=== PATIENT | female | born 1940 | race Hispanic/Latino ===

== ENCOUNTER → 2017-04-04 | Outpatient (CLI) | payer OTHER | LOC: RAH 14:54 | PROVIDERS: ATTEND Family Medicine | DX: Z12.31 Encounter for screening mammogram for malignant neoplasm of breast (principal) | CPT/HCPCS: 77067 ==

== ENCOUNTER → 2018-07-15 | Outpatient (CLI) | payer OTHER | END | disposition home or self-care (01) | LOC: RAH 13:36 | PROVIDERS: ATTEND Family Medicine | DX: Z12.31 Encounter for screening mammogram for malignant neoplasm of breast (principal) | CPT/HCPCS: 77067 ==

== ENCOUNTER 2021-07-22 22:17 | Observation (INO) | payer OTHER ==
[~2021-07-22] VITALS: Ht 152.4 cm; Wt 49.9 kg
[~2021-07-22 22:17] MED LIST: ALEN70TA80 PO; APIX2.5T PO; ATOR40TA69 PO; CYCL30DR OP; METF-910 PO
[2021-07-23] VITALS (25 sets, daily range): BP systolic 116–175; BP diastolic 46–76
[2021-07-23] MEDS ORDERED: ONDANSETRON 4MG INJ IVP STA (00:06)
[2021-07-23] MEDS ORDERED: MORPHINE 4 MG SYG IVP STA (00:06)
[2021-07-23] MEDS ORDERED: ONDANSETRON 4MG INJ IVP PRN ×2 (00:30→04:30)
[2021-07-23] MEDS ORDERED: ZOSYN 3.375GM +NS 50ML IV SCH (00:30)
[2021-07-23] MEDS ORDERED: HYDROMORPHONE 0.5 MG SYG (0.5MG/0.5ML) IVP PRN (00:30)
[2021-07-23] MEDS ORDERED: INSULIN HUMULIN R 100 UNIT/ML 3ML SQ PRN (00:30)
[2021-07-23 00:48] LABS: BASOPHILS % (AUTO) 0.3 % (0.0-5.0); EOSINOPHILS % (AUTO) 0.1 % (0.0-8.0); HEMATOCRIT 32.7 % (36-48); LYMPHOCYTES % (AUTO) 13.3 % (21.0-51.0); MEAN CORPUSCULAR HEMOGLOBIN 28.2 pg (27.0-33.0); MEAN CORPUSCULAR HGB CONC 31.5 g/dL (32.0-36.0); MEAN CORPUSCULAR VOLUME 89.6 fL (79-99); MONOCYTES % (AUTO) 5.7 % (3.0-13.0); NEUTROPHILS % (AUTO) 79.9 % (40.0-77.0); PLATELET COUNT (AUTO) 236 K/uL (130-400); RED BLOOD CELL COUNT(AUTO) 3.65 MIL/uL (4.00-5.50); RED CELL DISTRIBUTION WIDTH 15.2 % (11.0-15.5); WHITE BLOOD COUNT (AUTO) 16.6 K/uL (4.8-10.8)
[2021-07-23 01:13] LABS: CREATININE 0.8 mg/dL (0.5-1.5); POTASSIUM 3.8 mmol/L (3.5-5.1)
[2021-07-23 01:18] LABS: ALBUMIN 3.8 g/dL (3.5-5.0); BILIRUBIN,TOTAL 0.6 mg/dL (0.2-1.0); TOTAL PROTEIN, SERUM 7.9 g/dL (6.0-8.3)
[2021-07-23] MEDS ORDERED: HYDRALAZINE 20MG/ML VIAL IV PRN (04:30)
[2021-07-23] MEDS ORDERED: ACETAMINOPHEN 325 MG TAB PO PRN (04:30)
[2021-07-23] MEDS ORDERED: LABETALOL 20MG SYG IV PRN (04:30)
[2021-07-23] MEDS ORDERED: LACTULOSE 20 GM/30 ML UDCUP PO PRN (04:30)
[2021-07-23] MEDS ORDERED: ACETAMINOPHEN 650 MG SUPPOSITORY RC PRN (04:30)
[2021-07-23] MEDS ORDERED: TEMAZEPAM 15 MG CAPSULE PO PRN (04:30)
[2021-07-23] MEDS ORDERED: CLONIDINE HCL 0.1 MG TABLET PO PRN (04:30)
[2021-07-23] MEDS ORDERED: DOCUSATE SODIUM 100 MG CAP PO PRN (04:30)
[2021-07-23] MEDS ORDERED: MORPHINE 4 MG SYG IVP PRN (04:30)
[2021-07-23] MEDS ORDERED: LOSA100T58 PO (04:53)
[2021-07-23] MEDS ORDERED: POTASSIUM CHLORIDE 20MEQ/100ML 100 ML IV PRN (06:00)
[2021-07-23] MEDS ORDERED: DEXTROSE 50%-WATER 50 ML DISP.SYRIN IV PRN (06:00)
[2021-07-23] MEDS ORDERED: POTASSIUM CHLORIDE 10% ELIXIR 20 MEQ/15 ML UDCUP PO PRN (06:00)
[2021-07-23] MEDS ORDERED: MAGNESIUM 2GM PREMIX 50ML 50 ML IV PRN (06:00)
[2021-07-23] MEDS ORDERED: KCL 20 MEQ ERTAB PO PRN (06:00)
[2021-07-23] MEDS ORDERED: GLUCAGON 1MG KIT 1 MG ML IM PRN (06:00)
[2021-07-23] MEDS: INSULIN HUMULIN R 100 UNIT/ML 3ML SQ SCH ×4 (06:51→21:00)
[2021-07-23] MEDS: LACTATED RINGERS 1000ML 1,000 ML IV SCH ×2 (06:57→19:20)
[2021-07-23] MEDS: LOSARTAN 100 MG TABLET PO SCH (09:38)
[2021-07-23] MEDS: PANTOPRAZOLE 40 MG/VIAL IVP SCH ×2 (09:38→20:27)
[2021-07-23] MEDS ORDERED: ACETAMINOPHEN WITH CODEINE 1 TAB TAB PO PRN (17:30)
[2021-07-23] MEDS ORDERED: PROPOFOL 10 MG/ML 20ML VIAL IV ONE (18:46)
[2021-07-23] MEDS ORDERED: KETAMINE 50MG/ML SYRINGE 50 MG/ML DISP.SYRIN IV ONE (18:48)
[2021-07-23] MEDS ORDERED: ATORVASTATIN 40 MG TABLET PO SCH (21:00)
[2021-07-24] VITALS (8 sets, daily range): BP systolic 121–146; BP diastolic 53–70
[2021-07-24 05:13] LABS: BASOPHILS % (AUTO) 0.2 % (0.0-5.0); EOSINOPHILS % (AUTO) 0.3 % (0.0-8.0); HEMATOCRIT 29.3 % (36-48); LYMPHOCYTES % (AUTO) 18.6 % (21.0-51.0); MEAN CORPUSCULAR HEMOGLOBIN 28.8 pg (27.0-33.0); MEAN CORPUSCULAR HGB CONC 32.4 g/dL (32.0-36.0); MEAN CORPUSCULAR VOLUME 88.8 fL (79-99); MONOCYTES % (AUTO) 10.5 % (3.0-13.0); NEUTROPHILS % (AUTO) 69.9 % (40.0-77.0); PLATELET COUNT (AUTO) 184 K/uL (130-400); RED CELL DISTRIBUTION WIDTH 15.1 % (11.0-15.5); WHITE BLOOD COUNT (AUTO) 12.4 K/uL (4.8-10.8)
[2021-07-24 05:40] LABS: CREATININE 0.6 mg/dL (0.5-1.5); MAGNESIUM 1.9 mg/dL (1.80-2.40); PHOSPHORUS 3.1 mg/dL (2.5-4.9); POTASSIUM 3.7 mmol/L (3.5-5.1)
[2021-07-24] MEDS: INSULIN HUMULIN R 100 UNIT/ML 3ML SQ SCH ×3 (05:53→16:30)
[2021-07-24] MEDS: PANTOPRAZOLE 40 MG/VIAL IVP SCH (09:00)
[2021-07-24] MEDS ORDERED: ENOXAPARIN SODIUM 40 MG/0.4 ML SYRINGE SQ SCH (09:00)
[2021-07-24] MEDS: LOSARTAN 100 MG TABLET PO SCH (10:00)
[2021-07-24 17:30] LABS: APPEARANCE,URINE Clear (CLEAR); BILIRUBIN,URINE Negative (NEGATIVE); COLOR,URINE Yellow (YELLOW); GLUCOSE, URINE (UA) Negative (NEGATIVE); KETONES,URINE Trace mg/dL (NEGATIVE); LEUKOCYTE ESTERASE ,URINE Large (NEGATIVE); NITRATE,URINE Negative (NEGATIVE); OCCULT BLOOD,URINE Moderate (NEGATIVE); PROTEIN,URINE Trace mg/dL (NEGATIVE)
[2021-07-24 18:11] LABS: BACTERIA,URINE Few /HPF (None Seen)
[2021-07-24 18:12] LABS: SQUAMOUS EPITHELIAL CELL,UR Few /HPF (0-2)
[2021-07-24] MEDS ORDERED: LEVO500T90 PO (19:20)
== END 2021-07-24 20:54 | disposition home or self-care (01) ==
LOC: EDH 22:17 → UNDOADMIN 07-23 00:05 → EDHIP 07-23 00:05 → 3DH 07-23 04:25
PROVIDERS: ADMIT Internal Medicine Critical Care Medicine; ATTEND Internal Medicine Critical Care Medicine
DX: S42.351A Displaced comminuted fracture of shaft of humerus, right arm, initial encounter for closed fracture (principal); Z20.822 Contact with and (suspected) exposure to COVID-19; S43.004A Unspecified dislocation of right shoulder joint, initial encounter; S72.001A Fracture of unspecified part of neck of right femur, initial encounter for closed fracture; I10 Essential (primary) hypertension; E11.9 Type 2 diabetes mellitus without complications; E78.5 Hyperlipidemia, unspecified; N39.0 Urinary tract infection, site not specified; E78.00 Pure hypercholesterolemia, unspecified; Z79.01 Long term (current) use of anticoagulants; Z79.899 Other long term (current) drug therapy; W01.0XXA Fall on same level from slipping, tripping and stumbling without subsequent striking against object, initial encounter; Y92.89 Other specified places as the place of occurrence of the external cause; Y93.89 Activity, other specified; Y99.8 Other external cause status
CPT/HCPCS: 24505; 36415 ×2; 71045; 73030 ×2; 73100; 80048; 80053; 81001; 82948 ×7; 83735; 84100; 84484; 85025 ×2; 86850; 86900; 86901; 87077; 87088; 87186; 87635; 93005; 96372; 96374; 96375; 96376; 97116; 97161; 99284; A4606; C9113 ×2; G0378 ×41; J1650; J2270; J2405; J2704; J3490; J7120

== ENCOUNTER → 2021-12-10 | Outpatient (CLI) | payer OTHER ==
[~2021-12-10] MED LIST changes: -ALEN70TA80 PO; -APIX2.5T PO; -CYCL30DR OP; +LEVO-70 PO; +LOSA100T58 PO
== END | disposition home or self-care (01) ==
LOC: RAH 14:08
PROVIDERS: ATTEND Family Medicine
DX: Z12.31 Encounter for screening mammogram for malignant neoplasm of breast (principal)
CPT/HCPCS: 77067

== ENCOUNTER → 2023-04-18 | Outpatient (CLI) | payer OTHER ==
[~2023-04-18] MED LIST changes: -LOSA100T58 PO; +LOSA100T59 PO
== END | disposition home or self-care (01) ==
LOC: RAH 14:30
PROVIDERS: ATTEND Family Medicine
DX: Z12.31 Encounter for screening mammogram for malignant neoplasm of breast (principal)
CPT/HCPCS: 77067

== ENCOUNTER 2024-06-06 09:17 | Observation (INO) | payer OTHER ==
[~2024-06-06] VITALS: Ht 160 cm; Wt 44.9 kg
--- NOTE | 2024-06-06 09:37 | ERN ---
General Chief Complaint: Hip Pain/Injury Stated Complaint: RT HIP PAIN POST FALL X3 DAYS AGO Time Seen by MD: 09:23 History of Present Illness Initial Comments 84-year-old female, history of hypertension, dyslipidemia, previous right hip surgery, presents for right hip pain. Three days ago she had a mechanical type fall onto the right hip. She was no other injuries. She did not hit her head. She reports that since then she has had pain to the right hip and she was not been able to ambulate without assistance. She does not appear to be able to bear weight. She was neurovascularly intact in the leg. He was decreased range of motion of the hip due to pain. No urinary symptoms. No fevers or systemic illness. She reports that the pain is in significant and since she can not walk she is unable to perform ADLs at home. Allergies: Coded Allergies: No Known Allergies (Unverified Allergy, Unknown, 02/07/19) Home Meds Reported Medications Alendronate Sodium (Alendronate Sodium) 70 Mg Tablet, 1 TAB PO QWEEKACB for 28 Days, #4 TAB 0 Refills in the morning, at least 30 minutes before the first food, beverage, or medication of the day 06/06/24 Losartan Potassium (Losartan Potassium) 100 Mg Tablet, 100 MG PO DAILY, TAB 07/23/21 Atorvastatin Calcium (LIPITOR) 40 Mg Tablet, 40 MG PO HS, TAB 02/08/19 Metformin HCl (Metformin HCl ER) 500 Mg Tab.er.24h, 500 MG PO BIDAC, TAB 02/08/19 Discontinued Scripts Levofloxacin (Levofloxacin) 500 Mg Tablet, 500 MG PO DAILY for 7 Days, #7 TAB Prov:DEEPAK SPICER AUTOMATION OPERATOR 07/24/21 Past Medical History Past Medical History: Diabetes-Type II, High Cholesterol, Hypertension Past Surgical History: None Social History Social History: Negative ROS Dictation CONSTITUTIONAL: No chills, no fever, no weakness, no diaphoresis, no malaise. HEAD/FACE: No signs of trauma. EENT: No eye pain, no blurred vision, no tearing, no double vision, no ear pain, no ear discharge, no nose pain, no nasal congestion, no throat pain, no throat swelling, no mouth pain. RESPIRATORY: No cough, no orthopnea, no SOB, no stridor, no wheezing. CARDIOVASCULAR: No chest pain, no edema, no palpitations, no syncope. GASTROINTESTINAL/ABDOMINAL: No abdominal pain, no constipation, no diarrhea, no nausea, no vomiting. GENITOURINARY: No abnormal discharge, no dysuria, no frequent urination, no hematuria. No complaints of pain in the genitals. MUSCULOSKELETAL: Right hip pain INTEGUMENTARY: No change in color, no change in hair/nails, no dryness, no lesion, no lumps, no rash. NEUROLOGICAL/PSYCH: No anxiety, not depressed, no emotional problem, no headache, no numbness, no pre-existing deficit, no history of seizures, no tremors, no weakness. HEMATOLOGIC/LYMPHATIC: Not anemic, no history of blood clots, no apparent bleeding, no bruising, glands not swollen. All Systems Negative, Except as Noted. Physical Exam Physical Exam Dictation VITAL SIGNS: Reviewed. GENERAL APPEARANCE: Alert, oriented x3, no acute distress, thin HEAD AND FACE: Non-traumatic. EYES: PERRL, pink conjunctivas, eyelid no trauma, anterior chamber clear. EARS: Pinnas intact and no signs of trauma or erythema. Ear canals clear and no discharge. TMs no erythema. NOSE: No discharge, no bleeding. OROPHARYNX: Mouth normal, teeth no caries, tongue pink. Pharynx clear, no erythema. Tonsils no exudates, no abscesses noted. Mucous membrane moist. NECK: Supple, non-tender, no thyromegaly, no masses, no JVD, no bruits. BREAST: Deferred. CHEST: No tenderness, no crepitus, no paradoxical movement, no retractions. LUNGS: Clear, well-ventilated, symmetric, no rales, no wheezing, no rhonchi, no stridor, good breath sounds bilaterally. HEART: Regular rate, regular rhythm, no murmur, no gallops. VASCULAR: No peripheral edema. ABDOMEN: Soft, positive bowel sounds, nondistended, no guarding, nontender, no rebound, no masses no hepatomegaly, no splenomegaly, no Hill's sign, no hernias. RECTAL: Deferred. GENITAL: Deferred. NEUROLOGICAL: Normal speech, gross motor function intact, gross sensory function intact. MUSCULOSKELETAL: Neck nontender, full range of motion, back nontender, full range of motion. Right hip has decreased range of motion due to pain tenderness with the palpation of the hip. Pelvis appears intact. EXTREMITIES: Nontender, full range of motion. SKIN: Color pink, dry, no turgor, no rash, no lacerations, no abrasions, no contusions. LYMPHATICS: Deferred. Results Laboratory and Microbiology Lab and Micro Result Laboratory Tests Test 06/06/24 09:37 White Blood Count 13.3 K/uL (4.8-10.8) H Red Blood Count 3.32 MIL/uL (4.00-5.50) L Hemoglobin 9.7 g/dL (12.0-16.0) L Hematocrit 30.1 % (36-48) L Mean Corpuscular Volume 90.7 fL (79-99) Mean Corpuscular Hemoglobin 29.2 pg (27.0-33.0) Mean Corpuscular Hemoglobin Concent 32.2 g/dL (32.0-36.0) Red Cell Distribution Width 14.3 % (11.0-15.5) Platelet Count 192 K/uL (130-400) Mean Platelet Volume 9.5 fL (7.5-10.5) Immature Granulocyte % (Auto) 0.6 % (0-1) Neutrophils (%) (Auto) 79.4 % (40.0-77.0) H Lymphocytes (%) (Auto) 9.4 % (21.0-51.0) L Monocytes (%) (Auto) 9.6 % (3.0-13.0) Eosinophils (%) (Auto) 0.8 % (0.0-8.0) Basophils (%) (Auto) 0.2 % (0.0-5.0) Neutrophils # (Auto) 10.5 K/uL (1.8-7.7) H Lymphocytes # (Auto) 1.3 K/uL (1.0-4.8) Monocytes # (Auto) 1.3 K/uL (0.1-1.0) H Eosinophils # (Auto) 0.11 K/uL (0.00-0.70) Basophils # (Auto) 0.03 K/uL (0.00-0.20) Absolute Immature Granulocyte (auto 0.08 K/uL (0-1) Nucleated Red Blood Cells 0.0 % (0.0-0.19) White Cell Morphology Comment See comments Sodium Level 139 mmol/L (136-145) Potassium Level 3.4 mmol/L (3.5-5.1) L Chloride Level 105 mmol/L (101-111) Carbon Dioxide Level 28 mmol/L (21-32) Blood Urea Nitrogen 18 mg/dL (7-18) Creatinine 0.8 mg/dL (0.5-1.0) Glomerular Filtration Rate Calc 74 mL/min (>90) Random Glucose 112 mg/dL (70-105) H Total Calcium 8.2 mg/dL (8.5-10.1) L MDM CC: Right hip pain after a fall three days ago Historian: Patient Comorbidities: Advanced age, high cholesterol, dyslipidemia, diabetes, frailty Limitations by social determinants of health: None Differential diagnosis: Fracture or musculoskeletal injury, other Vital signs stable, remained stable in the ER. Labs (independently ordered and interpreted by me ): There is a leukocytosis 13.3 K, 79% neutrophils. No bands. She was also anemic hemoglobin 9.7, normocytic. Likely baseline for patient. Chemistry panel shows a mildly elevated BUN to creatinine ratio but is otherwise unremarkable. The hip x-ray shows no evidence of fracture. Right medullary nail and screws appear intact. Independently interpreted by me. Treatment in ER: 4 mg IV morphine, 15 mg IV Toradol Re-evaluation. Patient reports improvement of pain, but she was still not ambulatory due to the discomfort. She reports that she was unable to take care of her ADLs at home, we will admit for inability to walk. Consultation: Hospitalist for admission. Agrees with the plan for admission. ED Course Orders Procedure Category Date Status Time Cbc With Differential LAB 06/06/24 Complete 09:23 Basic Metabolic Panel LAB 06/06/24 Complete 09:23 Morphine 4mg Syg PHA 06/06/24 Complete (Morphine 4mg Syg) 09:30 Ketorolac PHA 06/06/24 Complete Tromethamine 15mg/Ml 09:30 Hip Unilat 2-3vw Right RAD 06/06/24 Resulted 09:23 Current Medications Medications (Trade) Dose Ordered Sig/Belkis Route PRN Reason Start Time Stop Time Status Last Admin Dose Admin Ketorolac Tromethamine (toRADol) 15 mg ONCE ONCE IV 06/06/24 09:30 06/06/24 09:32 DC 06/06/24 10:36 Morphine Sulfate (morPHINE 4MG SYG) 4 mg ONCE ONCE IVP 06/06/24 09:30 06/06/24 09:32 DC 06/06/24 10:38 Vital Signs Date Time Temp Pulse Resp B/P (MAP) Pulse Ox O2 Delivery O2 Flow Rate FiO2 06/06/24 10:45 98.2 75 14 133/47 100 Room Air* 0 21 06/06/24 09:19 97.9 75 20 129/63 100 Room Air 0 DX & DISP Disposition: Inpatient ([facility], [place]) Departure Impression: Primary Impression: Injury of right hip Additional Impressions: Inability to ambulate due to hip, Normocytic anemia Condition: Stable Referrals: GURINDER JOSUE MD (PCP) LEXI CARY DO Jun 06, 2024 09:37
[2024-06-06 09:42] LABS: BASOPHILS # (AUTO) 0.03 K/uL (0.00-0.20); BASOPHILS % (AUTO) 0.2 % (0.0-5.0); EOSINOPHILS # (AUTO) 0.11 K/uL (0.00-0.70); EOSINOPHILS % (AUTO) 0.8 % (0.0-8.0); HEMATOCRIT 30.1 % (36-48); IMMATURE GRANULOCYTE ABSOLUTE 0.08 K/uL (0-1); LYMPHOCYTES # (AUTO) 1.3 K/uL (1.0-4.8); LYMPHOCYTES % (AUTO) 9.4 % (21.0-51.0); MEAN CORPUSCULAR HEMOGLOBIN 29.2 pg (27.0-33.0); MEAN CORPUSCULAR HGB CONC 32.2 g/dL (32.0-36.0); MEAN CORPUSCULAR VOLUME 90.7 fL (79-99); MONOCYTES # (AUTO) 1.3 K/uL (0.1-1.0); MONOCYTES % (AUTO) 9.6 % (3.0-13.0); NEUTROPHILS # (AUTO) 10.5 K/uL (1.8-7.7); NEUTROPHILS % (AUTO) 79.4 % (40.0-77.0); PLATELET COUNT (AUTO) 192 K/uL (130-400); RED BLOOD CELL COUNT(AUTO) 3.32 MIL/uL (4.00-5.50); RED CELL DISTRIBUTION WIDTH 14.3 % (11.0-15.5); WHITE BLOOD COUNT (AUTO) 13.3 K/uL (4.8-10.8)
[2024-06-06 09:56] LABS: CREATININE 0.8 mg/dL (0.5-1.0); POTASSIUM 3.4 mmol/L (3.5-5.1)
--- NOTE | 2024-06-06 10:30 | NUR ---
PATIENT STATES SHE DOES NOT HAVE HOME MEDS WITH HER AT BEDSIDE
[2024-06-06] MEDS: ketOROlac 15MG/ML VIAL (15MG/ML) IV ONE (10:36)
[2024-06-06] MEDS: morPHINE 4 MG SYG IVP ONE (10:38)
--- NOTE | 2024-06-06 11:47 | HP ---
[facility] HISTORY & PHYSICAL Date Patient Seen: Jun 06, 2024 Time of Visit: 11:47 Supervising Physician: Dr. Nish Brock Primary Care Physician: Dr. Rafa Castillo Outpatient Specialists: [ ] Inpatient Consults: [ ] PROBLEM LIST: Mechanical fall at home Previous right hip nail fixation Hypertension Dyslipidemia HPI: Patient was an 84-year-old female with a past medical history significant for hypertension, previous right hip nail fixation, who presents to the ED today and was admitted for a mechanical fall she suffered three days ago in which she landed on her right hip, no fracture seen on radiological imaging. Patient reports no head involvement. Patient states that over the course of the last three days the pain has prevented her from completing her ADLs. Per family at bedside they would like for patient to receive physical therapy at home after her workup here in the hospitalist complete. At this time patient has a physical therapy evaluation pending, advised that SNF placement would likely be more prudent however family declines and states they would like her to be at home. Advised that we will continue with physical therapy evaluation at this time and once it was arranged case management will work towards physical therapy at home if possible, if not patient's family advised that they may have to seek physical therapy at home through the PCP. Plan No fractures on radiographs Pain management Physical therapy evaluation Case management for home PT referral options PAST MEDICAL HX: see above PAST SURGICAL HX: noncontributory SOCIAL HISTORY: No tobacco, ETOH, or illicit drug use Coded Allergies: No Known Allergies (Unverified Allergy, Unknown, 02/07/19) REVIEW OF SYSTEMS: 12 point ROS reviewed with patient. Pertinent positives mentioned above. Otherwise negative. PHYSICAL EXAM: GENERAL: alert, weak, awake oriented x 3 HEENT: EOMI, Sclera non icteric, moist mucosa NECK: Supple, no JVD, trachea midline LUNGS: Clear breath sounds bilaterally. No wheezes HEART: Regular rate and rhythm. Normal S1 and S2, without murmurs ABD: Abdomen soft, nontender. Bowel sounds present EXT: No clubbing cyanosis or edema NEURO: Alert and oriented to person, follows commands Vital Signs (last 8hr) Date Time Temp Pulse Resp B/P (MAP) Pulse Ox O2 Delivery O2 Flow Rate FiO2 06/06/24 10:45 98.2 75 14 133/47 100 Room Air* 0 21 06/06/24 09:19 97.9 75 20 129/63 100 Room Air 0 LABS: Hematology Labs: Test 06/06/24 09:37 Range/Units White Blood Count 13.3 H 4.8-10.8 K/uL Red Blood Count 3.32 L 4.00-5.50 MIL/uL Hemoglobin 9.7 L 12.0-16.0 g/dL Hematocrit 30.1 L 36-48 % Mean Corpuscular Volume 90.7 79-99 fL Mean Corpuscular Hemoglobin 29.2 27.0-33.0 pg Mean Corpuscular Hemoglobin Concent 32.2 32.0-36.0 g/dL Red Cell Distribution Width 14.3 11.0-15.5 % Platelet Count 192 130-400 K/uL Mean Platelet Volume 9.5 7.5-10.5 fL Immature Granulocyte % (Auto) 0.6 0-1 % Neutrophils (%) (Auto) 79.4 H 40.0-77.0 % Lymphocytes (%) (Auto) 9.4 L 21.0-51.0 % Monocytes (%) (Auto) 9.6 3.0-13.0 % Eosinophils (%) (Auto) 0.8 0.0-8.0 % Basophils (%) (Auto) 0.2 0.0-5.0 % Neutrophils # (Auto) 10.5 H 1.8-7.7 K/uL Lymphocytes # (Auto) 1.3 1.0-4.8 K/uL Monocytes # (Auto) 1.3 H 0.1-1.0 K/uL Eosinophils # (Auto) 0.11 0.00-0.70 K/uL Basophils # (Auto) 0.03 0.00-0.20 K/uL Absolute Immature Granulocyte (auto 0.08 0-1 K/uL Nucleated Red Blood Cells 0.0 0.0-0.19 % White Cell Morphology Comment See comments Chemistry Labs: Test 06/06/24 09:37 Range/Units Sodium Level 139 136-145 mmol/L Potassium Level 3.4 L 3.5-5.1 mmol/L Chloride Level 105 101-111 mmol/L Carbon Dioxide Level 28 21-32 mmol/L Blood Urea Nitrogen 18 7-18 mg/dL Creatinine 0.8 0.5-1.0 mg/dL Glomerular Filtration Rate Calc 74 >90 mL/min Random Glucose 112 H 70-105 mg/dL Total Calcium 8.2 L 8.5-10.1 mg/dL DIAGNOSTICS / RADIOLOGY RESULTS: [ ] PLAN NEURO: Minimize central acting medications as possible. Maintain fall precautions, adequate lighting during the day PULMONARY: Supplemental 02 as needed. Maintain aspiration precautions at all times CARDIOVASCULAR: Follow hemodynamics. Vital signs per facility protocol GI & NUTRITION: Continue with nutritional support. Continue stool softeners and laxatives as needed. KIDNEYS & ELECTROLYTES: Strict monitoring of intake, output and overall fluid balance. Avoid nephrotoxic medications to the extent possible. Medications to be dosed according to renal function. Monitor electrolytes and replace as needed ENDOCRINE: Maintain blood glucose between 100-180 at all times. Hypoglycemia protocol in place INFECTIOUS DISEASE: Trend temperature, WBC and procalcitonin level Follow cultures, deescalate antibiotics as soon as possible. Panculture if new onset fever ONCOLOGY/HEMATOLOGY/COAGULATION: Monitor for s/s of bleeding Monitor hemoglobin, coagulation studies as needed SKIN: Pressure ulcer prevention per facility protocol Specialty mattress ORTHO/REHAB: Continue PT/OT Prophylaxis: Continue GI and DVT prophylaxis Code Status: Full Resuscitation Disposition: TBD Other: Total patient care time exceeds 35 minutes excluding all procedures. JEREMÍAS AREVALO Jun 06, 2024 11:47
--- NOTE | 2024-06-06 11:54 | HMCIMG ---
RIGHT HIP, INCLUDING AP PELVIS, RADIOGRAPHS - 2 VIEWS INDICATION: Pain COMPARISON: None FINDINGS: Proximal right femoral hardware appears normal. No acute fracture or subluxation identified. Both femoral heads are well formed without osteochondral erosion or radiographic evidence for avascular necrosis. No radiopaque foreign body noted. IMPRESSION: No evidence for fracture or dislocation.
[2024-06-06] MEDS ORDERED: LIDOCAINE HCL 2% VISCOUS 30 ML, MAG/ALUM/SIMETH 30ML 30 ML, DICYCLOMINE HCL 20 MG PO PRN (12:00)
[2024-06-06] MEDS ORDERED: guaiFENesin-DM 200/20MG 10ML PO PRN (12:00)
[2024-06-06] MEDS ORDERED: guaiFENesin SUGAR-FREE 100 MG/5 ML UDCUP PO PRN (12:00)
[2024-06-06] MEDS ORDERED: DiphenhydrAMINE HCL 25 MG CAPSULE PO PRN (12:00)
[2024-06-06] MEDS ORDERED: LOPERAMIDE HCL 2 MG CAP PO PRN (12:00)
[2024-06-06] MEDS ORDERED: doCUSate SODIUM 100 MG CAP PO PRN (12:00)
[2024-06-06] MEDS ORDERED: ZOLPidem TARTrate 5 MG TAB PO PRN (12:00)
[2024-06-06] MEDS ORDERED: NITROGLYCERIN 0.4 MG SL TAB SL PRN (12:00)
[2024-06-06] MEDS ORDERED: polyETHYLene GLYCol 3350 17 GM POWD.PACK PO PRN (12:00)
[2024-06-06] MEDS ORDERED: ondanSETRON 4MG INJ IV PRN (12:00)
[2024-06-06] MEDS ORDERED: MAG/ALUM/SIMETH 30 ML UDCUP PO PRN (12:00)
[2024-06-06] MEDS ORDERED: ARTIFICAL TEARS SOL 15 ML OP PRN (12:00)
[2024-06-06] MEDS ORDERED: acetaMINOPHEN 325 MG TAB PO PRN (12:00)
[2024-06-06] MEDS ORDERED: LACTULOSE 20 GM/30 ML UDCUP PO PRN (12:00)
[2024-06-06] MEDS ORDERED: DiphenhydrAMINE HCL 50 MG/ML VIAL IV PRN (12:00)
[2024-06-06] MEDS ORDERED: BENZOCAINE/MENTH/CETYLPYRD CL 1 EACH LOZENGE MM PRN (12:00)
[2024-06-06] MEDS ORDERED: PoTASSium chloRIDE 20MEQ/100ML 100 ML IV PRN (15:00)
[2024-06-06] MEDS ORDERED: PoTASSium chl 10% ELIXIR 20MEQ 20 MEQ/15 ML UDCUP PO PRN (15:00)
--- NOTE | 2024-06-06 15:06 | NUR ---
CALLED AND GAVE REPORT TO WEST RN, ROOM [id number]
[2024-06-06 15:15] VITALS: O2SAT 100
[2024-06-06 16:00] VITALS: BP 148/73; PULSE 74; RESP 18; TEMP 97.9
[2024-06-06] MEDS: PoTASSium chloRIDE 20MEQ ER 20 MEQ ERTAB PO PRN (17:48)
[2024-06-06] MEDS ORDERED: ALEN70TA80 PO (17:54)
[2024-06-06 19:15] VITALS: O2SAT 99
[2024-06-06 20:00] VITALS: BP 140/54; PULSE 76; RESP 20; TEMP 99
[2024-06-06] MEDS: atorVAStatin 40 MG TABLET PO SCH (20:59)
[2024-06-06] MEDS: FAMOTIDINE 20MG TAB PO SCH (20:59)
[2024-06-06] MEDS ORDERED: FAMOTIDINE 20MG VIAL IV SCH (21:00)
[2024-06-06] MEDS: acetaMINOPHEN 325 MG TAB PO PRN (23:30)
[2024-06-06 23:53] VITALS: BP 104/67; PULSE 77; RESP 16; TEMP 97.6
[2024-06-07] VITALS (7 sets, daily range): BP systolic 128–142; BP diastolic 54–62; PULSE 64–70; RESP 16–18; TEMP 98–98.9; O2SAT 99–100
[2024-06-07 05:19] LABS: MEAN CORPUSCULAR HEMOGLOBIN 29.2 pg (27.0-33.0); MEAN CORPUSCULAR HGB CONC 31.7 g/dL (32.0-36.0); MEAN CORPUSCULAR VOLUME 92.1 fL (79-99); RED BLOOD CELL COUNT(AUTO) 3.15 MIL/uL (4.00-5.50); RED CELL DISTRIBUTION WIDTH 14.3 % (11.0-15.5)
[2024-06-07 05:38] LABS: ALBUMIN 2.8 g/dL (3.5-5.0); BILIRUBIN,TOTAL 1.1 mg/dL (0.2-1.0); CREATININE 0.9 mg/dL (0.5-1.0); POTASSIUM 3.9 mmol/L (3.5-5.1); TOTAL PROTEIN, SERUM 6.6 g/dL (6.0-8.3)
[2024-06-07] MEDS: metFORmin HCL 500 MG TAB.SR.24H PO SCH (08:39)
--- NOTE | 2024-06-07 08:54 | PN ---
[facility] PROGRESS NOTE Date Patient Seen: Jun 07, 2024 Time of Visit: 08:54 Supervising Physician: [ ] Primary Care Physician: Dr. Rafa Castillo Outpatient Specialists: [ ] Inpatient Consults: [ ] PROBLEM LIST: Mechanical fall at home Previous right hip nail fixation Hypertension Dyslipidemia INTERVAL HISTORY: [ ] REVIEW OF SYSTEMS: 12 point ROS reviewed with patient. Pertinent positives mentioned above. Otherwise negative. PHYSICAL EXAM: GENERAL: alert, weak, awake oriented x 3 HEENT: EOMI, Sclera non icteric, moist mucosa NECK: Supple, no JVD, trachea midline LUNGS: Clear breath sounds bilaterally. No wheezes HEART: Regular rate and rhythm. Normal S1 and S2, without murmurs ABD: Abdomen soft, nontender. Bowel sounds present EXT: No clubbing cyanosis or edema NEURO: Alert and oriented to person, follows commands Vital Signs (last 8hr) Date Time Temp Pulse Resp B/P (MAP) Pulse Ox O2 Delivery O2 Flow Rate FiO2 06/07/24 07:41 99.0 65 18 139/56 100 Room Air 06/07/24 04:01 98.8 64 16 134/60 100 Nasal Cannula LABS: Hematology Labs: Test 06/07/24 04:58 06/06/24 09:37 Range/Units White Blood Count 13.0 H 4.8-10.8 K/uL Red Blood Count 3.15 L 4.00-5.50 MIL/uL Hemoglobin 9.2 L 12.0-16.0 g/dL Hematocrit 29.0 L 36-48 % Mean Corpuscular Volume 92.1 79-99 fL Mean Corpuscular Hemoglobin 29.2 27.0-33.0 pg Mean Corpuscular Hemoglobin Concent 31.7 L 32.0-36.0 g/dL Red Cell Distribution Width 14.3 11.0-15.5 % Platelet Count 162 130-400 K/uL Mean Platelet Volume 10.0 7.5-10.5 fL Nucleated Red Blood Cells 0.0 0.0-0.19 % Immature Granulocyte % (Auto) 0.6 0-1 % Neutrophils (%) (Auto) 79.4 H 40.0-77.0 % Lymphocytes (%) (Auto) 9.4 L 21.0-51.0 % Monocytes (%) (Auto) 9.6 3.0-13.0 % Eosinophils (%) (Auto) 0.8 0.0-8.0 % Basophils (%) (Auto) 0.2 0.0-5.0 % Neutrophils # (Auto) 10.5 H 1.8-7.7 K/uL Lymphocytes # (Auto) 1.3 1.0-4.8 K/uL Monocytes # (Auto) 1.3 H 0.1-1.0 K/uL Eosinophils # (Auto) 0.11 0.00-0.70 K/uL Basophils # (Auto) 0.03 0.00-0.20 K/uL Absolute Immature Granulocyte (auto 0.08 0-1 K/uL White Cell Morphology Comment See comments Chemistry Labs: Test 06/07/24 04:58 Range/Units Sodium Level 138 136-145 mmol/L Potassium Level 3.9 3.5-5.1 mmol/L Chloride Level 104 101-111 mmol/L Carbon Dioxide Level 28 21-32 mmol/L Blood Urea Nitrogen 20 H 7-18 mg/dL Creatinine 0.9 0.5-1.0 mg/dL Glomerular Filtration Rate Calc 64 >90 mL/min Random Glucose 93 70-105 mg/dL Total Calcium 8.1 L 8.5-10.1 mg/dL Total Bilirubin 1.1 H 0.2-1.0 mg/dL Aspartate Amino Transf (AST/SGOT) 23 10-37 U/L Alanine Aminotransferase (ALT/SGPT) 16 12-78 U/L Alkaline Phosphatase 57 50-136 U/L Total Protein 6.6 6.0-8.3 g/dL Albumin 2.8 L 3.5-5.0 g/dL DIAGNOSTICS / RADIOLOGY RESULTS: [ ] PLAN NEURO: Minimize central acting medications as possible. Maintain fall precautions, adequate lighting during the day PULMONARY: Supplemental 02 as needed. Maintain aspiration precautions at all times CARDIOVASCULAR: Follow hemodynamics. Vital signs per facility protocol GI & NUTRITION: Continue with nutritional support. Continue stool softeners and laxatives as needed. KIDNEYS & ELECTROLYTES: Strict monitoring of intake, output and overall fluid balance. Avoid nephrotoxic medications to the extent possible. Medications to be dosed according to renal function. Monitor electrolytes and replace as needed ENDOCRINE: Maintain blood glucose between 100-180 at all times. Hypoglycemia protocol in place INFECTIOUS DISEASE: Trend temperature, WBC and procalcitonin level Follow cultures, deescalate antibiotics as soon as possible. Panculture if new onset fever ONCOLOGY/HEMATOLOGY/COAGULATION: Monitor for s/s of bleeding Monitor hemoglobin, coagulation studies as needed SKIN: Pressure ulcer prevention per facility protocol Specialty mattress ORTHO/REHAB: Continue PT/OT Prophylaxis: Continue GI and DVT prophylaxis Code Status: Full Resuscitation Disposition: TBD Other: Total patient care time exceeds 35 minutes excluding all procedures. JEREMÍAS AREVALO Jun 07, 2024 08:54
--- NOTE | 2024-06-07 14:40 | NUR ---
Patient seen for second session following CM visit. CM reports multiple family members at bedside with remarks of medical staff lying. Upon entering room family members visibly upset and stating PT staff was lying about previous visit. STRANDING MACHINE OPERATOR HELPER attempted to deescalate situation with reassurance of PT order and proper communication with Sup PT. Family member continued to escalate and were further educated on PT process and assessment details. De-escalation was successful. Patient was provided treatment with strong recommendation to rehab as indicated per [facility] PT evaluation and education on risk factors with high possibility of re-admission secondary to high risk of falls. Patient presented with poor understanding of commands when attempting gait and is very fearful with activity. Patient was able to ambulate 5 steps with Max verbal/tactile cues and encouragement from family members. Patient was returned to bed safely and strongly encouraged family to contact Nursing staff to reduce fall risk. Family and patient agreed on promoting safety. Primary RN was notified of patient current level of function. PT session completed and to continue within patient tolerance. Addendum: 06/07/24 at 1610 by JOELLEN ROA PT PT Amended: Links added.
--- NOTE | 2024-06-07 15:43 | DS ---
[facility] DISCHARGE SUMMARY Date Patient Seen: Jun 07, 2024 Time of Visit: 15:43 Supervising Physician: Dr. Nish Brock Primary Care Physician: Dr. Rafa Castillo Outpatient Specialists: [ ] Inpatient Consults: [ ] HOSPITAL COURSE: HPI (per admitting provider) Patient was an 84-year-old female with a past medical history significant for hypertension, previous right hip nail fixation, who presents to the ED today and was admitted for a mechanical fall she suffered three days ago in which she landed on her right hip, no fracture seen on radiological imaging. Patient reports no head involvement. Patient states that over the course of the last three days the pain has prevented her from completing her ADLs. Per family at bedside they would like for patient to receive physical therapy at home after her workup here in the hospitalist complete. At this time patient has a physical therapy evaluation pending, advised that SNF placement would likely be more prudent however family declines and states they would like her to be at home. Advised that we will continue with physical therapy evaluation at this time and once it was arranged case management will work towards physical therapy at home if possible, if not patient's family advised that they may have to seek physical therapy at home through the PCP. The patient was treated for the following problems: Patient presented to the emergency department and was admitted following a mechanical fall at home in which she landed on her hip. Patient has a previous nail fixation of this hip proximally one year ago. On evaluation patient has no fractures visible on radiographs, only soft tissue bruising at this time. Family would like to admit the patient for pain management as well as for rehabilitative therapy, family denying SNF at this time and would like to proceed with physical therapy at home. Case management to send physical therapy recommendations to insurance with patient being cleared for discharge once this is completed. ACTIVE PROBLEM LIST FOR THE HOSPITALIZATION: Mechanical fall at home Previous right hip nail fixation CHRONIC PROBLEMS: continue previous management per PCP unless otherwise indicated Hypertension Dyslipidemia ALUMINUM SIDING MECHANIC FINDINGS/RECOMMENDATIONS: [ ] PROCEDURES: as mentioned above DISCHARGE MEDICATIONS: Pt hemodynamically stable and afebrile at time of discharge. PCP notified of patients admission, hospital course and discharge. PHYSICAL EXAM: GENERAL: alert, weak, awake oriented x 3 HEENT: EOMI, Sclera non icteric, moist mucosa NECK: Supple, no JVD, trachea midline LUNGS: Clear breath sounds bilaterally. No wheezes HEART: Regular rate and rhythm. Normal S1 and S2, without murmurs ABD: Abdomen soft, nontender. Bowel sounds present EXT: No clubbing cyanosis or edema NEURO: Alert and oriented to person, follows commands FOLLOW-UP: Follow-up with PCP in 2-3 days RECOMMENDATIONS: See Discharge Instructions This case was seen and discussed with my supervising physician. More than 30 minutes spent on discharge process, including evaluation of the patient, discussion with nursing staff, medication reconciliation and follow-up appointments JEREMÍAS AREVALO Jun 07, 2024 15:43
--- NOTE | 2024-06-07 15:46 | NUR ---
Discharge Planning: Patient refused SNF placement. Requested home [facility] for PT at home. Referral sent to [facility]. Pending insurance authorization. Addendum: 06/07/24 at 1547 by VIRGINIA BRUNSON RN CM Amended: Links added.
--- NOTE | 2024-06-07 17:05 | NUR ---
Attempted report to but family refused. This journalists and other writers notified the CM of the family request. As per the CM this will require another order and paper work to make this pfsup2nd happen.
--- NOTE | 2024-06-07 18:10 | NUR ---
Discharge Planning: Patient and family initially refused SNF placement for PT and requested home health services instead. Referral sent and patient accepted at [facility]. Family changed their minds and now requesting SNF placement but only for 2-3 days. CM told to come back in the morning around 11 am and they will have made a decision regarding SNF of choice. CM will follow up in am.
--- NOTE | 2024-06-07 18:12 | NUR ---
SPEECH TRIGGER COMPLETED / FALL AT HOME Pt IS AN 84 Y.O. FEMALE ADMITTED SECONDARY TO FALL AT HOME. Pt HAS A PAST MEDICAL HISTORY SIGNIFICANT FOR HYPERTENSION AND PREVIOUS HIP NAIL FIXATION. Pt CURRENTLY ON REGULAR DIET (REGULAR TEXTURE AND THIN LIQUIDS). PER NURSE SHANELLE, Pt TOLERATING DIET WITH NO OVERT S/S OF ASPIRATION. PLEASE REQUEST SPEECH THERAPY SERVICES FOR SKILLED BEDSIDE SWALLOW EVALUATION IF Pt PRESENTS WITH +S/S OF ASPIRATION SUCH COUGH RESPONSE, THROAT CLEAR, OR WET VOCAL QUALITY DURING ORAL INTAKE. ALL QUESTIONS ANSWERED AT THIS TIME. Addendum: 06/07/[address] SAMIA MIMS Amended: Links added.
--- NOTE | 2024-06-07 19:00 | NUR ---
PER SHANELLE FIELDS DAY SHIFT PATIENT WAS NOT DISCHARGED TODAY BECAUSE FAMILY CHANGED OPINION ON SENDING PATIENT HOME WITH HOME HEALTH AND ARE NOW PENDING SNF PLACEMENT FOR REHAB.
[2024-06-08 00:33] VITALS: BP 146/71; PULSE 74; RESP 18; TEMP 99.1
[2024-06-08 04:00] VITALS: BP 166/73; PULSE 88; RESP 18; TEMP 98.1
[2024-06-08 08:00] VITALS: BP 136/51; PULSE 78; RESP 18; TEMP 97.6
--- NOTE | 2024-06-08 11:02 | PN ---
[facility] PROGRESS NOTE Date Patient Seen: Jun 08, 2024 Time of Visit: 12:01 Supervising Physician: [Dr. Bañuelos] Primary Care Physician: Dr. Rafa Castillo Outpatient Specialists: [ ] Inpatient Consults: [ ] PROBLEM LIST: Mechanical fall at home Previous right hip nail fixation Hypertension Dyslipidemia INTERVAL HISTORY: [Patient is evaluated at bedside with family present. She was considered for discharge yesterday, however was considering SNF at that time. She states no current right hip pain. Has only been taking Tylenol per bedside nurse. Patient was declining PT services at SNF NS stat up to go home. Family at bedside including daughter, son-in-law and states they we will support the patient at home. She does have a walker for at home use as well as a wheelchair. ] REVIEW OF SYSTEMS: 12 point ROS reviewed with patient. Pertinent positives mentioned above. O therwise negative. PHYSICAL EXAM: GENERAL: alert, weak, awake oriented x 3 HEENT: EOMI, Sclera non icteric, moist mucosa NECK: Supple, no JVD, trachea midline LUNGS: Clear breath sounds bilaterally. No wheezes HEART: Regular rate and rhythm. Normal S1 and S2, without murmurs ABD: Abdomen soft, nontender. Bowel sounds present EXT: No clubbing cyanosis or edema NEURO: Alert and oriented to person, follows commands Vital Signs (last 8hr) Date Time Temp Pulse Resp B/P (MAP) Pulse Ox O2 Delivery O2 Flow Rate FiO2 06/08/24 08:00 97.5 78 18 136/51 100 Room Air LABS: Hematology Labs: Test 06/07/24 04:58 Range/Units White Blood Count 13.0 H 4.8-10.8 K/uL Red Blood Count 3.15 L 4.00-5.50 MIL/uL Hemoglobin 9.2 L 12.0-16.0 g/dL Hematocrit 29.0 L 36-48 % Mean Corpuscular Volume 92.1 79-99 fL Mean Corpuscular Hemoglobin 29.2 27.0-33.0 pg Mean Corpuscular Hemoglobin Concent 31.7 L 32.0-36.0 g/dL Red Cell Distribution Width 14.3 11.0-15.5 % Platelet Count 162 130-400 K/uL Mean Platelet Volume 10.0 7.5-10.5 fL Nucleated Red Blood Cells 0.0 0.0-0.19 % Chemistry Labs: Test 06/07/24 04:58 Range/Units Sodium Level 138 136-145 mmol/L Potassium Level 3.9 3.5-5.1 mmol/L Chloride Level 104 101-111 mmol/L Carbon Dioxide Level 28 21-32 mmol/L Blood Urea Nitrogen 20 H 7-18 mg/dL Creatinine 0.9 0.5-1.0 mg/dL Glomerular Filtration Rate Calc 64 >90 mL/min Random Glucose 93 70-105 mg/dL Total Calcium 8.1 L 8.5-10.1 mg/dL Total Bilirubin 1.1 H 0.2-1.0 mg/dL Aspartate Amino Transf (AST/SGOT) 23 10-37 U/L Alanine Aminotransferase (ALT/SGPT) 16 12-78 U/L Alkaline Phosphatase 57 50-136 U/L Total Protein 6.6 6.0-8.3 g/dL Albumin 2.8 L 3.5-5.0 g/dL DIAGNOSTICS / RADIOLOGY RESULTS: [ ] PLAN NEURO: Minimize central acting medications as possible. Maintain fall precautions, adequate lighting during the day PULMONARY: Supplemental 02 as needed. Maintain aspiration precautions at all times CARDIOVASCULAR: Follow hemodynamics. Vital signs per facility protocol GI & NUTRITION: Continue with nutritional support. Continue stool softeners and laxatives as needed. KIDNEYS & ELECTROLYTES: Strict monitoring of intake, output and overall fluid balance. Avoid nephrotoxic medications to the extent possible. Medications to be dosed according to renal function. Monitor electrolytes and replace as needed ENDOCRINE: Maintain blood glucose between 100-180 at all times. Hypoglycemia protocol in place INFECTIOUS DISEASE: Trend temperature, WBC and procalcitonin level Follow cultures, deescalate antibiotics as soon as possible. Panculture if new onset fever ONCOLOGY/HEMATOLOGY/COAGULATION: Monitor for s/s of bleeding Monitor hemoglobin, coagulation studies as needed SKIN: Pressure ulcer prevention per facility protocol Specialty mattress ORTHO/REHAB: Continue PT/OT Prophylaxis: Continue GI and DVT prophylaxis Code Status: Full Resuscitation Disposition: TBD Other: Total patient care time exceeds 35 minutes excluding all procedures. CRISTA LATIF Jun 08, 2024 11:01
[2024-06-08 12:00] VITALS: BP 106/49; PULSE 72; RESP 17; TEMP 98
--- NOTE | 2024-06-08 12:05 | NUR ---
Discharge Planning: Patient's family and patient now saying to proceed with previous plan. D/C home with home health for PT. Discharge order in place.
--- NOTE | 2024-06-08 14:41 | NUR ---
Discharge report to This global technical writer reported to [facility], Patient will be discharging. Instructions are given and explained to the patient and her . She will follow up with her PCP and with home hea;lt. PIV is removed.
--- NOTE | 2024-06-08 14:57 | NUR ---
PT taken by wheelchair downstairs and left in private vehicle.
[2024-06-13] MEDS ORDERED: ALENDRONATE SODIUM 70 MG PO SCH (06:30)
== END 2024-06-08 15:00 | disposition home or self-care (01) ==
LOC: EDH 09:17 → EDHIP 11:44 → INTOOBSV 11:44 → 3BH 15:15
PROVIDERS: ADMIT Internal Medicine Critical Care Medicine; ATTEND Internal Medicine Critical Care Medicine
DX: M25.551 Pain in right hip (principal); I10 Essential (primary) hypertension; E11.9 Type 2 diabetes mellitus without complications; E78.00 Pure hypercholesterolemia, unspecified; D64.9 Anemia, unspecified; W18.39XA Other fall on same level, initial encounter; Y93.89 Activity, other specified; Y92.098 Other place in other non-institutional residence as the place of occurrence of the external cause; Y99.8 Other external cause status
CPT/HCPCS: 96374; 96375; 99284; 80048; 85025; 36415 ×2; 73502; 80053; 85027; 97161; 97116 ×4; 97530 ×2; G0378 ×19; J2270; J1885

== ENCOUNTER → 2024-07-28 | Outpatient (CLI) | payer OTHER ==
[~2024-07-28] MED LIST changes: +ALEN70TA80 PO; +CEFD300C3 PO; -LEVO-70 PO
--- NOTE | 2024-07-28 16:48 | HMCIMG ---
MR SPINAL CANAL, LUMBAR WO CON HISTORY: Osteomyelitis COMPARISON: None TECHNIQUE: MRI of the lumbar spine was performed utilizing multiple pulse sequences in axial and sagittal plane. Patient was not given contrast through intravenous route. FINDINGS: There is compression fracture involving L1 with 85. There is retropulsion at this level causing central canal narrowing. Chronic compression fracture are seen involving T11-T12 with 25% and 10% loss of height respectively. There are degenerative changes with lumbar spine spondylosis. There is reversal of normal lumbar curvature which may be related to muscle spasm or positioning. Degenerative disc signals are present at all lumbar spine levels. Visualized distal conus is unremarkable. At the T12-L1 level, there is spondylotic disc with central disc extrusion causing anterior thecal sac compression with bilateral lateral recess stenosis and bilateral neural foraminal stenosis. The thecal sac measures approximately 4.3 mm in its anterior posterior dimension. At the L1-L2 level, there is spondylotic disc and central this protrusion/extrusion causing anterior thecal sac compression with bilateral lateral recess stenosis and bilateral neural foraminal stenosis. The thecal sac measures approximately 4.9 mm in its anterior posterior dimension. At the L3-4 level, there is spondylotic disc with bilateral ligamentum flavum hypertrophy causing anterior thecal sac compression with bilateral lateral recess stenosis and bilateral neural foraminal stenosis. The thecal sac measures approximately 5 mm in its anterior posterior dimension. At the L4-5 level, there is spondylotic disc with central disc protrusion and bilateral ligamentum flavum hypertrophy causing anterior thecal sac compression with bilateral lateral recess stenosis and bilateral neural foraminal stenosis. The thecal sac measures approximately 5.9 mm in its anterior posterior dimension. At the L5-S1 level, there is spondylotic disc with central disc protrusion and bilateral ligamentum flavum hypertrophy causing anterior thecal sac compression with bilateral lateral recess stenosis and bilateral neural foraminal stenosis. The thecal sac measures approximately 6.9 mm in its anterior posterior dimension. IMPRESSION: 1. There is compression fracture involving L1 with 85. There is retropulsion at this level causing central canal narrowing. Chronic compression fracture are seen involving T11-T12 with 25% and 10% loss of height respectively. There are degenerative changes with lumbar spine spondylosis.
== END | disposition home or self-care (01) ==
LOC: RAH 15:28
PROVIDERS: ATTEND Family Medicine
DX: S32.040G Wedge compression fracture of fourth lumbar vertebra, subsequent encounter for fracture with delayed healing (principal); M47.817 Spondylosis without myelopathy or radiculopathy, lumbosacral region; M47.814 Spondylosis without myelopathy or radiculopathy, thoracic region; M51.369 Other intervertebral disc degeneration, lumbar region without mention of lumbar back pain or lower extremity pain; M51.27 Other intervertebral disc displacement, lumbosacral region; M48.07 Spinal stenosis, lumbosacral region; M48.04 Spinal stenosis, thoracic region; M43.9 Deforming dorsopathy, unspecified; M51.24 Other intervertebral disc displacement, thoracic region; X58.XXXD Exposure to other specified factors, subsequent encounter
CPT/HCPCS: 72148